=== PATIENT | female | born 1950 ===

== ENCOUNTER 2018-07-03 09:21 | Emergency (ER) | payer MEDICARE, OTHER ==
--- NOTE | 2018-07-03 10:03 | C.PDOC ---
History Of Present Illness 67 y/o F p/w R leg pain x 1 day. Patient states pain is on medial aspect of R knee and around anterior knee. States pain is sharp, constant, nonradiating, worse with ambulation. Denies swelling, fever, chest pain, dyspnea, rash, injury. States stands for work a lot. Came from [place] on plane 2 days ago. Time Seen by Provider: 07/03/18 09:42 Chief Complaint (Nursing): Lower Extremity Problem/Injury Past Medical History Vital Signs: Last Vital Signs Temp 97.6 F 07/03/18 09:25 Pulse 77 07/03/18 09:25 Resp 18 07/03/18 09:25 BP 118/79 07/03/18 09:25 Pulse Ox 99 07/03/18 09:25 - Medical History PMH: Hypothyroidism Family History: States: No Known Family Hx - Social History Hx Alcohol Use: No Hx Substance Use: No - Immunization History Hx Tetanus Toxoid Vaccination: No Hx Influenza Vaccination: No Hx Pneumococcal Vaccination: No Review Of Systems Except As Marked, All Systems Reviewed And Found Negative. Constitutional: Negative for: Fever Respiratory: Negative for: Shortness of Breath Physical Exam - Physical Exam Additional Physical Exam Comments: Constitutional: No acute distress. Head: Normocephalic. Atraumatic. Eyes: PERRL. ENT: Moist mucous membranes. Neck: Supple. Cardiovascular: Regular rate. Radial pulse 2+ bilaterally. Chest: No tenderness. Respiratory: Clear to auscultation bilaterally. GI: Soft. Nontender. Nondistended. Back: No CVA tenderness. Musculoskeletal: No tenderness or swelling of extremities. Skin: No rash. Neurologic: Alert, no focal deficit. Extremities: FROM x 4. No tenderness or swelling of extremities. No calf tenderness. ED Course And Treatment O2 Sat by Pulse Oximetry: 99 Medical Decision Making Medical Decision Making: XR Knee no fracture or dislocation. Doppler negative for DVT. KIYA wrap applied, ibuprofen as needed, f/u Ortho, return to ED for worsening pain, fever, swelling, dyspnea, erythema, inability to range, or any other problem. Disposition - Disposition Referrals: Koby Guthrie MD [Staff Provider] - Disposition: HOME/ ROUTINE Disposition Time: 11:45 Condition: STABLE Prescriptions: Ibuprofen [Motrin] 1 tab PO Q6 PRN #30 tab PRN Reason: Pain, Moderate (4-7) Instructions: Knee Pain Forms: [facility] [employer] [facility] (Czech) - Clinical Impression Clinical Impression: Knee pain
[2018-07-03 12:02] VITALS: BP 137/84; PULSE 65; RESP 16; TEMP 98.5; O2SAT 98
--- NOTE | 2018-07-03 12:26 | RAD ---
Date of service: 07/03/2018 PROCEDURE: Right Knee Radiographs. HISTORY: knee pain COMPARISON: None. FINDINGS: BONES: Normal. No fracture. JOINTS: Mild tricompartmental osteoarthritis. No articular erosion. JOINT EFFUSION: Trace OTHER FINDINGS: None. IMPRESSION: Mild tricompartmental osteoarthritis with trace joint effusion. No acute fracture.
--- NOTE | 2018-07-05 11:45 | VASCLAB ---
Date of service: 07/03/2018 PROCEDURE: Right Lower Extremity Venous Duplex Exam. HISTORY: R leg pain, recent long flight PRIORS: None. TECHNIQUE: Right common femoral, femoral, popliteal and posterior tibial, peroneal and great saphenous veins were evaluated. Flow was assessed with color Doppler, compressibility, assessment of phasic flow and augmentation response. Report prepared by KYLE Bolanos FINDINGS: RIGHT: 1. Common Femoral Vein: 1.1. Compressibility - Fully compressible: Thrombus - None: Flow - Phasic: Augmentation -Normal: Reflux - None. 2. Femoral Vein: 2.1. Compressibility - Fully compressible: Thrombus - None: Flow - Phasic: Augmentation -Normal: Reflux - None. 3. Popliteal Vein: 3.1. Compressibility - Fully compressible: Thrombus - None: Flow - Phasic: Augmentation -Normal: Reflux - None. 4. Posterior Tibial Vein: 4.1. Compressibility - Fully compressible: Thrombus - None: Flow - Phasic: Augmentation -Normal: Reflux - None. 5. Peroneal Vein: 5.1. Compressibility - Fully compressible: Thrombus - None: Flow - Phasic: Augmentation -Normal: Reflux - None. 6. Great Saphenous Vein: 6.1. Compressibility - Fully compressible: Thrombus -None: Flow - Phasic: Augmentation - Normal: Reflux - None. OTHER FINDINGS: IMPRESSION: No evidence of deep or superficial vein thrombosis of the right lower extremity with excellent venous flow. Normal valve function noted of the right side. Normal venous flow noted in the left common femoral vein.
== END 2018-07-03 12:01 | disposition home or self-care (01) ==
LOC: C.ER 09:21
DX: M25.561 Pain in right knee (principal); E03.9 Hypothyroidism, unspecified

== ENCOUNTER → 2018-11-16 | Outpatient (CLI) | payer MEDICARE | LOC: C.MAMMO 08:42 ==